=== PATIENT | female | born 1970 ===

== ENCOUNTER → 2018-10-13 | Outpatient (CLI) | payer OTHER | LOC: LAB.O 10-12 13:14 | PROVIDERS: ATTEND Nurse Practitioner Family | DX: N98.9 Complication associated with artificial fertilization, unspecified (principal); N76.0 Acute vaginitis ==

== ENCOUNTER → 2020-03-13 | Outpatient (CLI) | payer OTHER | LOC: EDSTATUS 11:37 → LAB.NP 15:42 → LAB.O 15:42 | PROVIDERS: ATTEND Nurse Practitioner Family | DX: N89.8 Other specified noninflammatory disorders of vagina (principal) ==